=== PATIENT | male | born 1965 | race Caucasian/White ===

== ENCOUNTER 2018-02-09 10:16 | Inpatient (IN) | payer MEDICAID ==
[2018-02-09 11:17] LABS: ADD MAN DIFF? NO
[2018-02-09 11:20] LABS: BASOPHIL # 0.1 10^3/ul (0.0-0.1); BASOPHILS % 0.8 % (0.0-2.0); EOSINOPHILS # 0.1 10^3/ul (0.0-0.5); EOSINOPHILS % 1.1 % (0.0-7.0); HEMATOCRIT 48.9 % (42.0-52.0); HEMOGLOBIN 16.4 g/dl (14.0-18.0); LYMPHOCYTES # 1.3 10^3/ul (0.8-2.9); LYMPHOCYTES % 20.3 % (15.0-51.0); MEAN CORPUSCULAR HEMOGLOBIN 33.5 pg (29.0-33.0); MEAN CORPUSCULAR HGB CONC 33.5 g/dl (32.0-37.0); MEAN CORPUSCULAR VOLUME 99.8 fl (82.0-101.0); MEAN PLATELET VOLUME 11.2 fl (7.4-10.4); MONOCYTE # 0.6 10^3/ul (0.3-0.9); MONOCYTES % 9.9 % (0.0-11.0); NEUTROPHIL # 4.3 10^3/ul (1.6-7.5); NEUTROPHILS % 67.7 % (39.0-77.0); PLATELET COUNT 166 10^3/UL (140-415); RED CELL DISTRIBUTION WIDTH 13.4 % (11.5-14.5)
[2018-02-09 11:20] LABS: WHITE BLOOD COUNT 6.3 10^3/ul (4.8-10.8)
[2018-02-09] MEDS ORDERED: ONDANSETRON 4 MG INJ IV ×2 (11:30→13:00)
[2018-02-09] MEDS ORDERED: ACETAMINOPHEN 325 MG TAB PO ×2 (11:30→13:00)
[2018-02-09 11:38] LABS: ALANINE AMINOTRANSFERASE 87 IU/L (13-69); ALBUMIN 4.1 g/dl (3.3-4.9); ALBUMIN/GLOBULIN RATIO 0.97; ALKALINE PHOSPHATASE 159 IU/L (42-121); ANION GAP 19 (8-16); ASPARTATE AMINO TRANSFERASE 81 IU/L (15-46); BILIRUBIN,INDIRECT 0.3 mg/dl (0-1.1); BILIRUBIN,TOTAL 0.3 mg/dl (0.2-1.3); BLOOD UREA NITROGEN 14 mg/dl (7-20); CALCIUM 9.6 mg/dl (8.4-10.2); CARBON DIOXIDE 27 mmol/L (21-31); CHLORIDE 104 mmol/L (97-110); CREATININE 0.52 mg/dl (0.61-1.24); GLUCOSE 147 mg/dl (70-220); POTASSIUM 4.6 mmol/L (3.5-5.1); SODIUM 145 mmol/L (135-144); TOTAL PROTEIN 8.3 g/dl (6.1-8.1)
[2018-02-09 11:43] LABS: INR 0.96; PROTIME 12.9 Sec (11.9-14.9)
[2018-02-09 11:44] LABS: PARTIAL THROMBOPLASTIN TIME 28.6 Sec (25.0-35.0)
[2018-02-09 12:13] LABS: TROPONIN-I < 0.012 ng/ml (0.00-0.12)
[2018-02-09] MEDS ORDERED: NACL 0.9% 3 ML SYG IV (13:00)
[2018-02-09] MEDS: PANTOPRAZOLE 40 MG INJ IV ×2 (13:04→18:23)
[2018-02-09] MEDS: DEXTROSE 5%-0.45% NACL 1,000 ML IV (15:18)
[2018-02-09] MEDS: CEFTRIAXONE 1 GM/50 ML (PMX) 50 ML IVPB (15:19)
[2018-02-09 16:43] LABS: AADO2 Arterial 87.8 mmHg (7.0-24.0); Allen Test ACCEPTAB; Arterial Base Excess 2.1 mmol/L (-3.0-3); Arterial Blood Gas Oxygen Sat 98.1 mmHG (95.0-98.0); Arterial COHb 0.6 % (0.0-3.0); Arterial Fraction of Oxyhgb 97.1 % (93.0-99.0); Arterial MetHb 0.4 % (0.0-1.5); Arterial Total Hemglobin 16.9 g/dl (12.0-18.0); Arterial pCO2 47.8 mmhg (35-45); MODE TRACH COLLAR; Site Right Radial
[2018-02-09] MEDS ORDERED: ACETAMINOPHEN 650MG/20.3ML CUP GTB (17:00)
[2018-02-09 17:11] LABS: HAAIG REFLEX REFLEX FILED
[2018-02-09 17:50] LABS: HEPATITIS B SURFACE ANTIGEN NEGATIVE (NEGATIVE)
[2018-02-09 18:08] LABS: HEPATITIS B CORE ANTIBODY REACTIVE (NEGATIVE)
[2018-02-09] MEDS: AMANTADINE 100 MG/10 ML POSYR GTB (21:00)
[2018-02-09] MEDS: GABAPENTIN 300 MG CAP GTB (21:32)
[2018-02-09] MEDS: DOCUSATE SODIUM 100 MG CAP PO (21:32)
[2018-02-09] MEDS: LEVETIRACETAM (100 MG/ML) 5ML CUP GTB (21:32)
[2018-02-09 21:38] LABS: HEPATITIS C VIRAL ANTIBODY REACTIVE (NEGATIVE)
[2018-02-10] MEDS: DEXTROSE 5%-0.45% NACL 1,000 ML IV ×2 (01:55→02:45)
[2018-02-10] MEDS: PANTOPRAZOLE 40 MG INJ IV ×2 (05:09→17:11)
[2018-02-10 06:24] LABS: ADD MAN DIFF? NO
[2018-02-10 06:26] LABS: WHITE BLOOD COUNT 5.5 10^3/ul (4.8-10.8)
[2018-02-10 06:26] LABS: BASOPHIL # 0.1 10^3/ul (0.0-0.1); BASOPHILS % 0.9 % (0.0-2.0); EOSINOPHILS # 0.2 10^3/ul (0.0-0.5); EOSINOPHILS % 3.5 % (0.0-7.0); HEMATOCRIT 45.5 % (42.0-52.0); HEMOGLOBIN 15.1 g/dl (14.0-18.0); LYMPHOCYTES # 1.8 10^3/ul (0.8-2.9); LYMPHOCYTES % 32.3 % (15.0-51.0); MEAN CORPUSCULAR HEMOGLOBIN 33.6 pg (29.0-33.0); MEAN CORPUSCULAR HGB CONC 33.2 g/dl (32.0-37.0); MEAN CORPUSCULAR VOLUME 101.1 fl (82.0-101.0); MEAN PLATELET VOLUME 11.8 fl (7.4-10.4); MONOCYTE # 0.6 10^3/ul (0.3-0.9); MONOCYTES % 11.1 % (0.0-11.0); NEUTROPHIL # 2.9 10^3/ul (1.6-7.5); NEUTROPHILS % 52.2 % (39.0-77.0); PLATELET COUNT 158 10^3/UL (140-415)
[2018-02-10 06:55] LABS: ANION GAP 16 (8-16); BLOOD UREA NITROGEN 11 mg/dl (7-20); CALCIUM 8.9 mg/dl (8.4-10.2); CARBON DIOXIDE 27 mmol/L (21-31); CHLORIDE 107 mmol/L (97-110); CREATININE 0.54 mg/dl (0.61-1.24); GLUCOSE 137 mg/dl (70-220); MAGNESIUM 2.1 mg/dl (1.7-2.5); PHOSPHORUS 3.7 mg/dl (2.5-4.9); POTASSIUM 4.2 mmol/L (3.5-5.1); SODIUM 146 mmol/L (135-144)
[2018-02-10] MEDS: AMANTADINE 100 MG/10 ML POSYR GTB ×2 (09:00→21:30)
[2018-02-10] MEDS: DOCUSATE SODIUM 100 MG CAP PO ×2 (09:00→21:31)
[2018-02-10] MEDS: LACTOBACILLUS RHAMNOSUS CAP GTB (09:00)
[2018-02-10] MEDS: MODAFINIL 200 MG TAB GTB (09:00)
[2018-02-10] MEDS: GABAPENTIN 300 MG CAP GTB ×2 (09:00→21:31)
[2018-02-10] MEDS: LEVETIRACETAM (100 MG/ML) 5ML CUP GTB ×2 (09:00→21:30)
[2018-02-10] MEDS ORDERED: PROPOFOL 40 ML (09:51)
[2018-02-10] MEDS ORDERED: LIDOCAINE 100 MG SYRINGE (09:51)
[2018-02-10] MEDS ORDERED: FENTAnyl 50 MCG/ML VIAL (10:01)
[2018-02-11] MEDS: PANTOPRAZOLE 40 MG INJ IV ×2 (05:07→18:00)
[2018-02-11 07:38] LABS: ALANINE AMINOTRANSFERASE 92 IU/L (13-69); ALBUMIN 3.9 g/dl (3.3-4.9); ALBUMIN/GLOBULIN RATIO 1.02; ALKALINE PHOSPHATASE 137 IU/L (42-121); ANION GAP 18 (8-16); ASPARTATE AMINO TRANSFERASE 105 IU/L (15-46); BILIRUBIN,INDIRECT 0.4 mg/dl (0-1.1); BILIRUBIN,TOTAL 0.4 mg/dl (0.2-1.3); BLOOD UREA NITROGEN 11 mg/dl (7-20); CARBON DIOXIDE 25 mmol/L (21-31); CHLORIDE 110 mmol/L (97-110); CREATININE 0.55 mg/dl (0.61-1.24); GLUCOSE 136 mg/dl (70-220); POTASSIUM 3.9 mmol/L (3.5-5.1); SODIUM 149 mmol/L (135-144); TOTAL PROTEIN 7.7 g/dl (6.1-8.1)
[2018-02-11] MEDS: DOCUSATE SODIUM 10 MG/ML (10ML CUP) GTB (09:06)
[2018-02-11] MEDS: LEVETIRACETAM (100 MG/ML) 5ML CUP GTB (09:06)
[2018-02-11] MEDS: AMANTADINE 100 MG/10 ML POSYR GTB (09:06)
[2018-02-11] MEDS: LACTOBACILLUS RHAMNOSUS CAP GTB (09:07)
[2018-02-11] MEDS: GABAPENTIN 300 MG CAP GTB (09:07)
[2018-02-11] MEDS: MODAFINIL 200 MG TAB GTB (10:12)
[2018-02-11 16:36] LABS: ADD MAN DIFF? NO
[2018-02-11 16:40] LABS: WHITE BLOOD COUNT 4.7 10^3/ul (4.8-10.8)
[2018-02-11 16:40] LABS: BASOPHILS % 0.9 % (0.0-2.0); EOSINOPHILS # 0.2 10^3/ul (0.0-0.5); EOSINOPHILS % 3.6 % (0.0-7.0); HEMATOCRIT 46.5 % (42.0-52.0); HEMOGLOBIN 14.9 g/dl (14.0-18.0); LYMPHOCYTES % 43.5 % (15.0-51.0); MEAN CORPUSCULAR HEMOGLOBIN 33.6 pg (29.0-33.0); MEAN CORPUSCULAR VOLUME 104.7 fl (82.0-101.0); MONOCYTE # 0.4 10^3/ul (0.3-0.9); NEUTROPHILS % 42.8 % (39.0-77.0); PLATELET COUNT 162 10^3/UL (140-415); RED BLOOD COUNT 4.44 10^6/ul (4.70-6.10); RED CELL DISTRIBUTION WIDTH 13.9 % (11.5-14.5)
== END 2018-02-11 19:45 | DRG 380 ==
LOC: E/R 10:16 → MS2 11:29
PROC: 0DB78ZX Excision of Stomach, Pylorus, Via Natural or Artificial Opening Endoscopic, Diagnostic (ICD-10-PCS; principal; 2018-02-10 09:50)
DX: K22.11 Ulcer of esophagus with bleeding (principal); G93.40 Encephalopathy, unspecified; J96.10 Chronic respiratory failure, unspecified whether with hypoxia or hypercapnia; K92.2 Gastrointestinal hemorrhage, unspecified; R79.89 Other specified abnormal findings of blood chemistry; K25.9 Gastric ulcer, unspecified as acute or chronic, without hemorrhage or perforation; G40.909 Epilepsy, unspecified, not intractable, without status epilepticus; K21.0 Gastro-esophageal reflux disease with esophagitis; K22.8 Other specified diseases of esophagus
CPT/HCPCS: 36415; 36600; 76705; 80048; 80053; 82803; 82962; 83735; 84100; 84484; 85025; 85610; 85730; 86704; 86709; 86803; 86850; 86900; 86901; 87081; 87340; 88305; 88312; 93005; 96374; 96375; 97162; 97165; 99285-25